=== PATIENT | male | born 1965 | race Caucasian/White ===

== ENCOUNTER 2019-04-08 06:58 | Emergency (ER) | payer OTHER ==
[~2019-04-08] VITALS: Ht 187.9 cm; Wt 87.1 kg
[~2019-04-08 06:58] MED LIST: AMOXICILLIN500 MG PO; CLINDAMYCIN HC300 MG PO; DOLOPHINE5 MG PO; DOXYCYCLINE100 M2 PO; HYDROCODONE BIT1 T11 PO; MOTRIN800 MG PO; NKHM; PENICILLIN VK500 MG PO; PHENERGAN W/ DE30 ML PO; Peridex 473 ML473 ML PO
[2019-04-08] MEDS ORDERED: CYCLOBENZAPRINE10 MG PO ×2 (08:37→15:27)
[2019-04-08] MEDS ORDERED: TYLENOL325 M1 PO ×2 (08:37→15:27)
[2019-04-08] MEDS ORDERED: NAPROSYN500 MG PO ×2 (08:37→15:27)
== END 2019-04-08 08:42 | disposition home or self-care (01) ==
LOC: ED 06:58
DX: S13.4XXA Sprain of ligaments of cervical spine, initial encounter (principal); F17.210 Nicotine dependence, cigarettes, uncomplicated; Z79.2 Long term (current) use of antibiotics; V43.52XA Car driver injured in collision with other type car in traffic accident, initial encounter; Y93.I9 Activity, other involving external motion; Y92.488 Other paved roadways as the place of occurrence of the external cause; Y99.8 Other external cause status

== ENCOUNTER → 2019-04-20 | Outpatient (CLI) | payer SELFPAY ==
[~2019-04-20] MED LIST changes: +CYCLOBENZAPRINE10 MG PO; +NAPROSYN500 MG PO; +TYLENOL325 M1 PO
== END | disposition home or self-care (01) ==
LOC: RESCLI 01:07
DX: S16.1XXA Strain of muscle, fascia and tendon at neck level, initial encounter (principal); Z72.0 Tobacco use; Z87.828 Personal history of other (healed) physical injury and trauma; X58.XXXA Exposure to other specified factors, initial encounter; Y93.89 Activity, other specified; Y92.89 Other specified places as the place of occurrence of the external cause; Y99.8 Other external cause status

== ENCOUNTER → 2019-08-01 | Outpatient (CLI) | payer SELFPAY | END | disposition home or self-care (01) | LOC: RESCLI 00:24 | DX: Z12.11 Encounter for screening for malignant neoplasm of colon (principal); Z00.00 Encounter for general adult medical examination without abnormal findings; Z72.0 Tobacco use; Z79.899 Other long term (current) drug therapy ==

== ENCOUNTER 2021-06-27 07:54 | Emergency (ER) | payer SELFPAY ==
[~2021-06-27] VITALS: Ht 185.4 cm; Wt 85.7 kg
[2021-06-27 08:34] LABS: BASO % 0.2 % (0.0-1.0); EOS # 0.3 10*3/uL (0.0-0.4); EOS % 3.1 % (1.0-4.0); HEMATOCRIT 43.3 % (42.0-52.0); LYMPH # 1.8 10*3/uL (1.3-4.4); LYMPH % 20.3 % (27.0-41.0); MEAN CELL VOLUME 90.2 fl (80.0-94.0); MEAN CORPUSCULAR HGB 31.9 pg (27.0-31.0); MEAN CORPUSCULAR HGB CONC 35.3 g/dl (33.0-37.0); MONO # 0.8 10*3/uL (0.1-1.0); NEUT # 5.9 10*3/uL (2.3-7.9); NEUT % 67.3 % (47.0-73.0); PLATELET COUNT AUTOMATED 239 10*3/uL (130-400); RED CELL DISTRI WIDTH 12.5 % (0-14.5); WHITE BLOOD COUNT 8.7 10*3/uL (4.8-10.8)
[2021-06-27 08:50] LABS: ALBUMIN 3.7 gm/dl (3.1-4.5); ALKALINE PHOSPHATASE 61 U/L (45-117); BUN 10 mg/dl (7-24); CHLORIDE 105 mmol/L (98-107); CREATININE 0.61 mg/dL (0.70-1.30); POTASSIUM 4.1 mmol/L (3.5-5.1); SGOT/AST 62 IU/L (3-35); SGPT/ALT 82 U/L (12-78); SODIUM 137 mmol/L (136-145); TOTAL PROTEIN 7.9 gm/dL (6.4-8.2)
[2021-06-27] MEDS ORDERED: SEPTDS PO (09:15)
[2021-06-27] MEDS ORDERED: CEPHALEXIN500 M1 PO (09:15)
== END 2021-06-27 09:19 | disposition home or self-care (01) ==
LOC: ED 07:54
PROVIDERS: Student in an Organized Health Care Education/Training Program
DX: L03.011 Cellulitis of right finger (principal)